=== PATIENT | female | born 1980 | race Caucasian/White ===

== ENCOUNTER 2023-11-27 12:37 | Emergency (ER) | payer BC, SELFPAY ==
[2023-11-27 12:40] VITALS: BP 146/97; BMI 43.6
--- NOTE | 2023-11-27 13:25 | ED.GENMED ---
History of Present Illness
General
Chief Complaint: Headache
Source: patient
Exam Limitations: none
Time Seen by Provider: 11/27/23 13:11
Nursing documentation reviewed up to this point in time: agreed with
History of Present Illness
History of Present Illness:
Patient is a 40-year-old female with history of MS. She reports she does typically get vertigo and migraines with her MS. She is followed by Dr. Susanne Montesinos.
She is due to see a MS specialist at the unresponsive any December 15. She is not currently on medication for MS. She reports her typical vertigo started on Friday with room spinning. 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
migraine on her left temporal region since then. She has been taking meclizine and reports vertigo has slightly been improving. It is now intermittent but comes in waves. She presented today however with complaints of persistent left-sided
migraine headache.
She does complain of light sensitivity and nausea. She denies any recent illness fever chills. This is her typical migraine symptom. She denies any recent trauma.
Past History
Past History
ED Past Medical History: Asthma and Other (migraines. Takes Topamax daily); Negative HTN, Hypercholesterolemia or NIDDM
ED Past Surgical History: , Gynecological (Uterus and tube removal) and Other (gastric sleeve 2013)
Social History
Tobacco: Non-smoker
Alcohol: None
Drug: None
Personal:
Living: with family
Employment: Employed
Family History
Family History: Other
Review of Systems
Review of Systems
Allergies reviewed?: Yes
All Other Systems: ROS reviewed and negative except as documented in HPI and ROS
Constitutional: Reports no symptoms; Denies fever, fatigue or chills
EENT: Reports no symptoms
Respiratory: Reports no symptoms
Cardiac: Reports no symptoms
ABD/GI: Reports no symptoms
Musculoskeletal: Reports no symptoms
Skin: Reports no symptoms
Neurological: Reports headache (left temporal headache intermittent vertigo )
Psychiatric: Reports no symptoms
Phy Exam
General Physical Exam
General Presentation: no apparent distress
General age: appears stated age
General Skin: warm and dry
General Habitus: normal
General Mental: alert
General Hydration: appears well hydrated
Eye Exam
Eye Exam: PERRL and EOMI
Eye Exam General: PERRL: bilateral and EOM intact: bilateral
Pupil Exam: Bilateral: round and reactive
Neurological Exam
Neurological Exam: alert, oriented x3, no motor deficits and no sensory deficits
Cerebellar
Cerebellar Function: normal finger to nose
Musculoskeletal Exam
Musculoskeletal Exam: full ROM
Skin Exam
Skin Exam: normal color and warm/dry
Psychiatric Exam
Psychiatric Exam: normal mood/affect
Course
Orders/Labs/Results
Orders:
Orders
11/27/23 12:39
EKG [Electrocardiogram (*1)] Stat
Reason for Study: Vertigo / Dizzy
EKG- Treatment ONCE
11/27/23 13:22
Diphenhydramine [Benadryl] 25 mg IV NOW STA
Metoclopramide [Reglan] 10 mg IV NOW STA
11/27/23 13:23
0.9% Sodium Chloride 1000 ml [Nss] 1,000 ml IV BOLUS
Acetaminophen 1000MG/100Ml [Ofirmev] 1,000 mg in 100 ml IV ONCE
Acetaminophen IV Indication:: ED Narcotic Naive Pt-ONCE
11/27/23 15:00
diazePAM [Valium Injection] 2 mg IV NOW STA
11/27/23 16:00
Vital Signs- Treatment ONCE
Frequency: Once
Vital Signs
Initial and Last Documented VS:
Initial Vital Signs
Temp Pulse Resp BP Pulse Ox
97.7 F 118 22 146/97 98
11/27/23 12:40 11/27/23 12:40 11/27/23 12:40 11/27/23 12:40 11/27/23 12:40
Last Documented Vital Signs
Temp Pulse Resp BP Pulse Ox
97.7 F 95 17 116/83 95
11/27/23 12:40 11/27/23 16:12 11/27/23 16:12 11/27/23 16:12 11/27/23 16:12
MDM/Problems Addressed
Differential Diagnosis Includes:
not limited to: vertigo, migraines
MDM/Problems Addressed:
Patient is a 43-year-old female with history of MS and reports she has a history of vertigo and migraines related to MS. She is followed by neurology here and is scheduled to see a specialist at [place] for her MS soon. She presents with her typical
migraine vertigo symptoms. She is in no acute distress. She was treated for migraine here with Reglan fluids Benadryl which did not improve patient's symptoms. She still has mild vertigo and was given Valium monitored here feeling much better
stable for discharge home ambulatory with her cane at baseline.
*Critical Care Note
Total Time (30-74mins, 75-104mins- exclusive of procedures): Not Applicable
ED Attending Note
-
Portions of this chart may have been created with voice recognition software.� Occasional wrong word or��sound alike� substitutions may have occurred due to the inherent limitations of voice recognition software.
Discharge Plan
Departure
Patient Disposition: Home (Routine Discharge)
Date of Disposition: 11/27/23
Time of Disposition: 16:00
Patient with high blood pressure during this ER visit?: Yes
Condition: Fair
Covid-19: Not Applicable
Discharge Problem:
Migraine, Vertigo
Instructions: Vertigo (a type of dizziness), Migraines (DC), BLOOD PRESSURE
Prescriptions:
No Action
cyclobenzaprine 10 mg Tablet
10 mg PO BIDPRN PRN (Reason: SPASMS)
phenazopyridine 200 mg Tablet
200 mg PO TID
prochlorperazine maleate 10 mg Tablet
10 mg PO TID
ondansetron 8 mg Tablet,Disintegrating
8 mg PO TIDPRN PRN (Reason: NAUSEA)
meclizine 25 mg Tablet
25 mg PO TID
ergocalciferol (vitamin D2) 1,250 mcg (50,000 unit) Capsule
1,250 mcg PO SUWE
albuterol sulfate [ProAir HFA] 90 mcg/actuation Hfa Aerosol Inhaler
2 puff INHALATION R TIDPRN PRN (Reason: SOB)
oxycodone 10 mg Tablet
10 mg PO QID
oxycodone 10 mg Tablet
10 mg PO BIDPRN PRN (Reason: MIGRAINES)
magnesium oxide 84.5 mg mag (140 mg) Capsule
84.5 mg PO HS
Uro-MP 118-10-40.8-36 mg Capsule
1 tab PO BID
riboflavin (vitamin B2) 400 mg Tablet
400 mg PO DAILY
Ajovy Syringe 225 mg/1.5 mL Syringe
225 mg SC QMONTH
Ubrelvy 100 mg Tablet
100 mg PO DAILYPRN PRN (Reason: MIGRAINES)
Nurtec ODT 75 mg Tablet,Disintegrating
75 mg PO DAILYPRN PRN (Reason: MIRGRAINES)
Wegovy 0.5 mg/0.5 mL Pen Injector
0.5 mg SC NICKERSON
Referrals:
Michoacano Hernandez MD [Family Provider] -
Activity Restrictions/Additional Instructions:
Be sure to stay well-hydrated and get plenty of rest. Follow-up with your family doctor in the next several days for reevaluation of your symptoms and return if any worsening of symptoms.
Interventions
Interventions:
*Risk Screen - Suicide Last Done: 11/27/23 12:40
*General Assessment Last Done: 11/27/23 13:07
*Neglect/Abuse Screening Last Done: 11/27/23 12:40
ED- Fall Risk Assessment Last Done: 11/27/23 12:40
*ED COVID-19 Vaccine History Last Done: 11/27/23 13:07
*Nursing Disposition Last Done: 11/27/23 16:14
ED- Neurological Assessment Last Done: 11/27/23 13:07
Discharge Date and Time
Discharge Date/Time: 11/27/23 16:14
Print Language: SINHALA
[2023-11-27] MEDS: BENADRYL 25 MG IV (13:33)
[2023-11-27] MEDS: REGLAN 10 MG IV (13:34)
[2023-11-27] MEDS: NSS 1000 IV (13:35)
[2023-11-27] MEDS: OFIRMEV 100 IV (13:35)
[2023-11-27] MEDS: VALIUM INJECTION 2 MG IV (15:29)
[2023-11-27 16:12] VITALS: BP 116/83
== END 2023-11-27 16:14 | disposition home or self-care (01) ==
LOC: EMR 12:37
PROVIDERS: EMERGENCY PHYSICIAN Student in an Organized Health Care Education/Training Program; FAMILY PHYSICIAN Family Medicine
DX: R42 Dizziness and giddiness (principal); G43.909 Migraine, unspecified, not intractable, without status migrainosus; R03.0 Elevated blood-pressure reading, without diagnosis of hypertension
CPT/HCPCS: 99284; 96374; 96375 ×3; 96361; 93005